=== PATIENT | male | born 1940 | race Caucasian/White ===

== ENCOUNTER → 2017-03-15 19:49 | Outpatient (CLI) | payer MEDICARE, OTHER | END | disposition home or self-care (01) | LOC: D.SLEEP 19:49 | DX: G47.33 Obstructive sleep apnea (adult) (pediatric) (principal) ==

== ENCOUNTER → 2017-03-23 09:52 | Outpatient (CLI) | payer MEDICARE, OTHER | END | disposition home or self-care (01) | LOC: D.MRI 09:52 | DX: M54.5 Low back pain (principal); M54.12 Radiculopathy, cervical region ==